=== PATIENT | female | born 1950 | race Caucasian/White ===

== ENCOUNTER → 2021-03-05 10:30 | Outpatient (BNVA) | payer OTHER, SELFPAY | PROVIDERS: PCP Family Medicine; Visit Provider Nurse Practitioner Family | DX: E03.9 Hypothyroidism, unspecified (principal); E78.2 Mixed hyperlipidemia; I10 Essential (primary) hypertension; N39.0 Urinary tract infection, site not specified; Z72.0 Tobacco use | CPT/HCPCS: 80053; 80061; 81000; 82043; 84443; 85025; 87086 ==

== ENCOUNTER → 2021-10-05 09:58 | Outpatient (BNVA) | payer OTHER, SELFPAY | PROVIDERS: PCP Family Medicine; Visit Provider Family Medicine | DX: I10 Essential (primary) hypertension (principal); E78.5 Hyperlipidemia, unspecified; M54.12 Radiculopathy, cervical region; E03.9 Hypothyroidism, unspecified; J30.2 Other seasonal allergic rhinitis | CPT/HCPCS: 80048; 84443 ==

== ENCOUNTER → 2022-08-13 09:37 | Outpatient (BNVA) | payer OTHER, SELFPAY | PROVIDERS: PCP Family Medicine; Visit Provider Family Medicine | DX: E03.9 Hypothyroidism, unspecified (principal); E78.2 Mixed hyperlipidemia; I10 Essential (primary) hypertension; J44.9 Chronic obstructive pulmonary disease, unspecified | CPT/HCPCS: 80053; 80061; 84443; 85025 ==

== ENCOUNTER → 2023-02-28 09:13 | Outpatient (BNVA) | payer OTHER, SELFPAY | PROVIDERS: PCP Family Medicine; Visit Provider Family Medicine | DX: I10 Essential (primary) hypertension (principal); E03.9 Hypothyroidism, unspecified; Z82.61 Family history of arthritis; M19.011 Primary osteoarthritis, right shoulder; M16.0 Bilateral primary osteoarthritis of hip | CPT/HCPCS: 73030; 73523; 80053; 84443; 85651; 86038; 86140 ==

== ENCOUNTER → 2023-03-06 13:29 | Outpatient (BNVA) | payer OTHER, SELFPAY | PROVIDERS: PCP Family Medicine; Visit Provider Nurse Practitioner Family | DX: R07.81 Pleurodynia (principal); W19.XXXA Unspecified fall, initial encounter; S22.42XA Multiple fractures of ribs, left side, initial encounter for closed fracture | CPT/HCPCS: 71100 ==

== ENCOUNTER → 2023-05-08 13:59 | Outpatient (BNVA) | payer OTHER, SELFPAY | PROVIDERS: PCP Family Medicine; Visit Provider Specialist | DX: M16.0 Bilateral primary osteoarthritis of hip; M70.61 Trochanteric bursitis, right hip; M70.62 Trochanteric bursitis, left hip | CPT/HCPCS: 73523 ==

== ENCOUNTER → 2023-05-23 13:23 | Outpatient (BNVA) | payer OTHER, SELFPAY | PROVIDERS: PCP Family Medicine; Visit Provider Podiatrist Foot & Ankle Surgery | DX: Q82.8 Other specified congenital malformations of skin; M20.10 Hallux valgus (acquired), unspecified foot; M20.41 Other hammer toe(s) (acquired), right foot | CPT/HCPCS: 73630 ==

== ENCOUNTER → 2023-08-29 08:45 | Outpatient (BNVA) | payer MEDICARE, SELFPAY | PROVIDERS: PCP Family Medicine; Visit Provider Family Medicine | DX: I10 Essential (primary) hypertension (principal); E03.9 Hypothyroidism, unspecified; E78.2 Mixed hyperlipidemia | CPT/HCPCS: 80053; 80061; 83735; 84439; 84443; 84481; 85025 ==

== ENCOUNTER → 2024-02-25 09:44 | Outpatient (BNVA) | payer MEDICARE, SELFPAY | PROVIDERS: PCP Family Medicine; Visit Provider Family Medicine | DX: I10 Essential (primary) hypertension (principal); E03.9 Hypothyroidism, unspecified; E78.2 Mixed hyperlipidemia | CPT/HCPCS: 80053; 80061; 84439; 84443; 84481 ==

== ENCOUNTER → 2024-03-11 09:56 | Outpatient (BNVA) | payer MEDICARE, SELFPAY | PROVIDERS: PCP Family Medicine; Visit Provider Nurse Practitioner Family | DX: R19.7 Diarrhea, unspecified (principal) | CPT/HCPCS: 87426 ==

== ENCOUNTER → 2024-08-25 09:28 | Outpatient (BNVA) | payer MEDICARE, SELFPAY | PROVIDERS: PCP Family Medicine; Visit Provider Family Medicine | DX: I10 Essential (primary) hypertension (principal); J44.9 Chronic obstructive pulmonary disease, unspecified; Z87.891 Personal history of nicotine dependence; J30.2 Other seasonal allergic rhinitis; M54.12 Radiculopathy, cervical region; E03.9 Hypothyroidism, unspecified; G47.00 Insomnia, unspecified; E78.2 Mixed hyperlipidemia; Z78.9 Other specified health status; J41.0 Simple chronic bronchitis; F51.01 Primary insomnia | CPT/HCPCS: 80053; 80061; 84443 ==

== ENCOUNTER → 2024-12-17 10:58 | Outpatient (BNVA) | payer MEDICARE, SELFPAY | PROVIDERS: PCP Family Medicine; Visit Provider Nurse Practitioner | DX: R23.3 Spontaneous ecchymoses (principal) | CPT/HCPCS: 80053; 85025 ==

== ENCOUNTER → 2024-12-31 09:50 | Outpatient (BNVA) | payer MEDICARE, SELFPAY | PROVIDERS: PCP Family Medicine; Visit Provider Family Medicine | DX: D75.839 Thrombocytosis, unspecified (principal); Z86.2 Personal history of diseases of the blood and blood-forming organs and certain disorders involving the immune mechanism | CPT/HCPCS: 80503; 85610; 85651; 86140 ==

== ENCOUNTER 2025-01-19 12:00 | Oncology outpatient (recurring) (ONCR) | payer MEDICARE, SELFPAY ==
[2025-01-19 13:35] LABS: Ferritin 12 ng/mL (15-150); Iron 21 ug/dL (37-145); Total Iron Binding Capacity 355 mcg/dl; Unsaturated Iron Binding 334 ug/dL (112-347)
[2025-01-25 15:30] LABS: CALR Exon 9 Mutation NOT DETECTED (NOT DETECTED); JAK2 Exon 12 Mutation NOT DETECTED (NOT DETECTED); JAK2 V617 Clinical Indication thrombocyosis; MPL Exon 10 Mutation NOT DETECTED (NOT DETECTED); Specimen Source blood
== END 2025-01-21 23:59 | disposition home or self-care (01) ==
PROVIDERS: PCP Family Medicine; Visit Provider Internal Medicine Medical Oncology
DX: Z53.9 Procedure and treatment not carried out, unspecified reason; D75.839 Thrombocytosis, unspecified; R22.1 Localized swelling, mass and lump, neck; D47.3 Essential (hemorrhagic) thrombocythemia; R23.3 Spontaneous ecchymoses
CPT/HCPCS: 36415; 81219; 81270; 81279; 81339; 82728; 83540; 83550; 88374; 99204; 99205

== ENCOUNTER 2025-02-03 09:43 | Outpatient (CLI) | payer MEDICARE, SELFPAY ==
--- NOTE | 2025-02-03 09:40 | MM_ITS ---
WS: [id number] BILATERAL 3D TOMOSYNTHESIS DIGITAL SCREENING MAMMOGRAPHY WITH CAD CLINICAL INFORMATION: SCREENING HISTORY: Screening mammogram. No current complaints. COMPARISON: 2020 TECHNIQUE: Bilateral CC and MLO views. FINDINGS: Scattered fibroglandular densities bilaterally. Stable ovoid nodule inferior LEFT breast. New spiculated focal asymmetric density anterior LEFT breast this measures approximately 7 mm. Recommend further evaluation with LEFT breast diagnostic mammography and ultrasound. Unremarkable RIGHT breast. MM/MM scr tomosynthesis [id number] IMPRESSION: DENSITY: There are scattered areas of fibroglandular density. BI-RADS: 0 - Incomplete: Need additional imaging evaluation. FOLLOW UP: Need Additional Imaging Recommend further evaluation with LEFT breast diagnostic mammography and ultras ound.
== END 2025-02-03 09:44 | disposition home or self-care (01) ==
PROVIDERS: PCP Family Medicine; Visit Provider Family Medicine
DX: Z12.31 Encounter for screening mammogram for malignant neoplasm of breast (principal); R92.323 Mammographic fibroglandular density, bilateral breasts; N63.24 Unspecified lump in the left breast, lower inner quadrant; N64.89 Other specified disorders of breast
CPT/HCPCS: 77063; 77067

== ENCOUNTER 2025-02-16 08:27 | Day surgery (SDC) | payer MEDICARE, SELFPAY ==
[2025-02-16 08:47] VITALS: BP 132/84; PULSE 84; RESP 18; TEMP 36.5; O2SAT 97; BMI 23.1
--- NOTE | 2025-02-16 09:10 | ANES.PREANE2 ---
Pre-Anesthetic Assessment Height/Weight: Height 1.63 m Weight 61.235 kg Temp Pulse Resp BP Pulse Ox O2 Del Method 97.7 F 84 18 132/84 97 Room Air 02/16/25 08:47 02/16/25 08:47 02/16/25 08:47 02/16/25 08:47 02/16/25 08:47 02/16/25 08:47 Preop Diagnosis: screening Operation Date: 02/16/25 09:45 Proposed Procedures p Colonoscopy 27869 G0121, Z12.11(Not Applicable) - Yasmany Kern MD Was Beta Jose taken within 24 hours: Yes Was Clonidine taken within 24 hours: N/A Last intake: Intake Last Liquid Date 02/15/25 Last Liquid Time 20:00 Last Solid Date 02/14/25 Last Solid Time 18:00 Social Tobacco 1/2 ppd pack(s) per day 20 plus pack years Exam alert and oriented x 3 Airway Submandibular: within normal limits Cervical ROM: within normal limits Mallampati: Class I Dentition: false (uppers left in) History/ROS No significant history except as noted Pulmonary None reported CV/HEM Hypertension and Murmur None reported Hepatic None reported GI None reported Metabolic Hyperlipidemia and Thyroid [place] [facility] [place] Fibromyalgia lupus Neuropsych None reported Anesthetic Plan ASA status: 3 Anesthesia: MAC Risk of > 500 ml blood loss (7ml/kg in children): No Medications/Allergies Home Medications ?Medication ?Instructions ?Recorded ?Confirmed ?Last Taken ?Type ascorbic acid (vitamin C) 1,000 mg 1 g PO DAILY 03/05/21 02/10/25 02/10/25 History tablet cholecalciferol (vitamin D3) 125 125 mcg PO DAILY 03/05/21 02/10/25 02/10/25 History mcg (5,000 unit) disintegrating tablet multivitamin 1 tab PO DAILY 03/05/21 02/10/25 02/10/25 History zinc acetate 50 mg (zinc) capsule 50 mg PO DAILY 03/05/21 02/10/25 02/10/25 History (Galzin) albuterol sulfate 90 mcg/actuation 2 inh inhalation Q4H PRN shortness 08/25/24 02/10/25 Unknown Rx aerosol inhaler of breath or wheezing #6.7 grams amlodipine 10 mg tablet 10 mg PO DAILY 90 days #90 tabs 08/25/24 02/16/25 02/16/25 Rx 10 gabapentin 400 mg capsule 400 mg PO TID 90 days #270 caps 08/25/24 02/10/25 02/10/25 Rx hydrochlorothiazide 25 mg tablet 25 mg PO DAILY 90 days #90 tabs 08/25/24 02/16/25 02/16/25 Rx 25 levothyroxine 137 mcg tablet 137 mcg PO DAILY 90 days #90 tabs 08/25/24 02/16/25 02/16/25 Rx 137 lisinopril 40 mg tablet 40 mg PO DAILY 90 days #90 tabs 08/25/24 02/16/25 02/16/25 Rx 40 MG zolpidem 5 mg tablet 5 mg PO .at bedtime #30 tabs 08/25/24 02/10/25 02/09/25 Rx tramadol 50 mg tablet 50 mg PO BID PRN pain 7 days #14 11/25/24 02/10/25 Unknown Rx tabs fluticasone propionate 50 1 spray intranasal Q12H 02/10/25 02/10/25 02/10/25 History mcg/actuation nasal spray,suspension loratadine 10 mg tablet 10 mg PO DAILY PRN Allergic 02/10/25 02/10/25 Unknown History Symptoms Allergies Allergy/AdvReac Type Severity Reaction Status Date / Time NSAIDS (Non-Steroidal Allergy Intermediate ALGY-Rash Verified 02/10/25 09:08 Anti-Inflamma ciprofloxacin (From Cipro) Allergy Mild ALGY-RASH Verified 02/10/25 09:08 sulfamethoxazole (From Allergy blisters Verified 02/10/25 09:08 Bactrim) trimethoprim (From Bactrim) Allergy blisters Verified 02/10/25 09:08 atorvastatin AdvReac Intermediate muscle Verified 02/10/25 09:08 cramps aspirin AdvReac Mild ADR-Abdominal Verified 02/10/25 09:08 Pain Current Medications Generic Name Dose Route Start Last Admin Trade Name Freq PRN Reason Stop Dose Admin Sodium Chloride 1,000 mls @ 15 mls/hr 02/16/25 08:35 02/16/25 08:55 Sodium Chloride 0.9% IV 02/17/25 08:34 15 mls/hr .Q24H PRN Administration COLONOSCOPY FLUIDS PFSH Anesthesia Medical History Hyperlipidemia Cervical radiculopathy Hypothyroidism Hypertension Surgical History H/O shoulder surgery H/O neck surgery S/P cholecystectomy H/O: hysterectomy Social History Smoking and tobacco/nicotine status: never used tobacco/nicotine Quit status (tobacco/nicotine): has quit using Year quit tobacco: 2017 Alcohol intake: never Substance/Drug Use: never Female Reproductive History Spontaneous abortions: No
--- NOTE | 2025-02-16 09:26 | W.PM.OPSFHP ---
Same Day Surgery H&P Indication for Procedure/HPI DATE OF PROCEDURE: February 16, 2025 CHIEF COMPLAINT/INDICATIONFOR SURGICAL PROCEDURE: screening colonoscopy PREOP DIAGNOSIS: screening colonoscopy PLANNED PROCEDURE: Operation Date: 02/16/25 09:45 Proposed Procedures p Colonoscopy 89182 G0121, Z12.11(Not Applicable) - Yasmnay Kern MD Medications/Allergies* Home Medications ?Medication ?Instructions ?Recorded ?Confirmed ?Type ascorbic acid (vitamin C) 1,000 mg 1 g PO DAILY 03/05/21 02/10/25 History tablet cholecalciferol (vitamin D3) 125 125 mcg PO DAILY 03/05/21 02/10/25 History mcg (5,000 unit) disintegrating tablet multivitamin 1 tab PO DAILY 03/05/21 02/10/25 History zinc acetate 50 mg (zinc) capsule 50 mg PO DAILY 03/05/21 02/10/25 History (Galzin) fluticasone propionate 50 1 spray intranasal Q12H 02/10/25 02/10/25 History mcg/actuation nasal spray,suspension loratadine 10 mg tablet 10 mg PO DAILY PRN Allergic 02/10/25 02/10/25 History Symptoms Allergies/Adverse Reactions Allergy/AdvReac Type Severity Reaction Status Date / Time NSAIDS (Non-Steroidal Allergy Intermediate ALGY-Rash Verified 02/10/25 09:08 Anti-Inflamma ciprofloxacin (From Cipro) Allergy Mild ALGY-RASH Verified 02/10/25 09:08 sulfamethoxazole (From Allergy blisters Verified 02/10/25 09:08 Bactrim) trimethoprim (From Bactrim) Allergy blisters Verified 02/10/25 09:08 atorvastatin AdvReac Intermediate muscle Verified 02/10/25 09:08 cramps aspirin AdvReac Mild ADR-Abdominal Verified 02/10/25 09:08 Pain Current Medications: Generic Name Dose Route Start Last Admin Trade Name Freq PRN Reason Stop Dose Admin Sodium Chloride 1,000 mls @ 15 mls/hr 02/16/25 08:35 02/16/25 08:55 Sodium Chloride 0.9% IV 02/17/25 08:34 15 mls/hr .Q24H PRN Administration COLONOSCOPY FLUIDS Pertinent History/Comorbid Conditions* Medical History (Updated 01/04/25 @ 09:18 by Nicolle España MD) Hyperlipidemia Cervical radiculopathy Hypothyroidism Hypertension Surgical History (Updated 10/10/20 @ 16:12 by Darya Mcmullen MD) H/O shoulder surgery H/O neck surgery S/P cholecystectomy H/O: hysterectomy Social History Smoking and tobacco/nicotine status: never used tobacco/nicotine Quit status (tobacco/nicotine): has quit using Year quit tobacco: 2017 Alcohol intake: never Substance/Drug Use: never Pertinent Exam Findings alert, oriented x 3, clear to auscultation bilaterally, regular rate & rhythm and procedure specific exam findings abdomen soft, nt, nd Recommendations Risks and benefits of procedure reviewed and Patient/family agree to proceed Surgery/Procedure today Coding Level of Care Code Acute Code for Chg Fwd
--- NOTE | 2025-02-16 09:37 | PC.NURSE ---
Cecum time 9640
[2025-02-16 09:47] VITALS: BP 147/81; PULSE 81; RESP 16; TEMP 36.2; O2SAT 100
--- NOTE | 2025-02-16 10:09 | ANE.PACU2 ---
Inpatient post-anesthesia follow up: Airway intact: Yes Vital signs: Temperature 97.1 F Pulse Rate 81 Respiratory Rate 16 Blood Pressure 147/81 Pulse Oximetry 100 Oxygen Delivery Me thod Room Air Oxygen Flow Rate Fraction of Inspir ed Oxygen Hydration adequate: Yes Nausea and vomiting: No Pain level: 1 Mental status: Baseline
== END 2025-02-16 10:09 | disposition home or self-care (01) ==
PROVIDERS: PCP Family Medicine; Visit Provider Student in an Organized Health Care Education/Training Program
PROC: 0DJD8ZZ Inspection of Lower Intestinal Tract, Via Natural or Artificial Opening Endoscopic (ICD-10-PCS; CPT 45378; principal; 2025-02-16 09:45)
DX: Z12.11 Encounter for screening for malignant neoplasm of colon (principal); K57.30 Diverticulosis of large intestine without perforation or abscess without bleeding; E78.5 Hyperlipidemia, unspecified; E03.9 Hypothyroidism, unspecified; I10 Essential (primary) hypertension; R01.1 Cardiac murmur, unspecified; M79.7 Fibromyalgia; Z87.891 Personal history of nicotine dependence
CPT/HCPCS: G0121; J2704; J7030

== ENCOUNTER 2025-02-25 13:21 | Outpatient (CLI) | payer MEDICARE, SELFPAY ==
--- NOTE | 2025-02-25 13:26 | MM_ITS ---
WS: [id number] LEFT 3D TOMOSYNTHESIS DIGITAL MAMMOGRAPHY WITH CAD CLINICAL INFORMATION: ABNORMAL MAMMO HISTORY: Additional views COMPARISON: 02/03/2025 TECHNIQUE: 3 views of the left breast were obtained. FINDINGS: Scattered fibroglandular densities of the left breast. Again seen is the spiculated focal asymmetric density anterior LEFT breast measuring 8 mm. This persists on the spot compression views. Ultrasound described below. ULTRASOUND BREAST LEFT TECHNIQUE: Ultrasound left breast focused area of concern. CLINICAL INFORMATION: ABNORMAL MAMMO FINDINGS: Ultrasound LEFT breast at the 1 o'clock position 1 cm from the nipple. There is a solid irregular hypoechoic nodule measuring 9 x 8 x 8 mm with a suspicious appearance. This is taller than wide and demonstrates posterior shadowing with spiculated irregular margins. This corresponds to the mammographic findings. Recommend further evaluation with ultrasound-guided biopsy. MM/MM diag LT tomosynthesis [id number] IMPRESSION: DENSITY: There are scattered areas of fibroglandular density. BI-RADS: 4 - Suspicious Finding - Biopsy Should Be Considered. FOLLOW UP: US Guided Biopsy Recommended Recommend ultrasound-guided biopsy of the LEFT breast lesion
== END 2025-02-25 13:22 | disposition home or self-care (01) ==
LOC: RAD 13:22
PROVIDERS: PCP Family Medicine; Visit Provider Family Medicine
DX: R92.8 Other abnormal and inconclusive findings on diagnostic imaging of breast (principal); R92.322 Mammographic fibroglandular density, left breast; N63.21 Unspecified lump in the left breast, upper outer quadrant
CPT/HCPCS: 76642; 77061; G0279

== ENCOUNTER 2025-03-03 10:37 | Outpatient (CLI) | payer MEDICARE, SELFPAY ==
--- NOTE | 2025-03-03 10:41 | US_ITS ---
WS: [id number] ULTRASOUND-GUIDED LEFT BREAST BIOPSY HISTORY: ABNORMAL MAMMO COMPARISON: 02/25/2025, 02/03/2025 Procedure, risks and complications are explained to the patient. Medications are reviewed. Consent is obtained. The mass in the LEFT breast is localized with ultrasound. Mass localizes to 1:00, 1 cm from the nipple. Skin is cleansed with ChloraPrep and anesthetized with 1% buffered lidocaine. Small dermatome is made. Under sterile conditions mass is biopsied with a 14-gauge Achieve needle. Multiple core biopsies are performed. Material placed in formalin and sent to pathology for review. No complications encountered. Breast tissue marker (Geswind ultrasound enhanced ribbon): Single. Patient left the radiology suite with no complications. Patient is instructed to return to [facility] [place] or call with any concerns. US/[place] [id number] IMPRESSION: 1. Uncomplicated core needle biopsy LEFT breast mass at 1:00, 1 cm from the ni pple. PATHOLOGY: Invasive mammary carcinoma, nuclear grade 2. Focal background ductal carcinoma in situ. Please refer to the pathology report for additional details . RECOMMENDATION: Follow-up with oncology and breast surgery.
[2025-03-08 13:54] LABS: Breast Profile ER,PR,HER2,Ki-6 See Report
== END 2025-03-03 10:38 | disposition home or self-care (01) ==
LOC: RAD 10:37
PROVIDERS: PCP Family Medicine; Visit Provider Family Medicine
DX: R92.8 Other abnormal and inconclusive findings on diagnostic imaging of breast (principal)
CPT/HCPCS: 19083; 88305; 88361; 88374

== ENCOUNTER 2025-03-10 11:22 | Oncology outpatient (recurring) (ONCR) | payer MEDICARE, SELFPAY | END 2025-03-23 23:59 | disposition home or self-care (01) | PROVIDERS: PCP Family Medicine; Visit Provider Internal Medicine Medical Oncology | DX: C50.912 Malignant neoplasm of unspecified site of left female breast (principal); Z17.0 Estrogen receptor positive status [ER+]; R01.1 Cardiac murmur, unspecified; I10 Essential (primary) hypertension; V89.2XXA Person injured in unspecified motor-vehicle accident, traffic, initial encounter; X58.XXXA Exposure to other specified factors, initial encounter | CPT/HCPCS: 99214 ==

== ENCOUNTER → 2025-03-18 13:37 | Outpatient (BNVA) | payer MEDICARE, SELFPAY | PROVIDERS: PCP Family Medicine; Visit Provider Student in an Organized Health Care Education/Training Program | DX: Z12.39 Encounter for other screening for malignant neoplasm of breast (principal) | CPT/HCPCS: 99204 ==

== ENCOUNTER 2025-03-24 07:34 | Day surgery (SDC) | payer MEDICARE, SELFPAY ==
[2025-03-24] VITALS (11 sets, daily range): BP systolic 91–144; BP diastolic 62–78; PULSE 73–89; RESP 12–18; TEMP 36.1–36.2; O2SAT 94–99; BMI 22.1
[2025-03-24 08:29] LABS: Hematocrit 37.6 % (36-47); Hemoglobin 12.80 g/dL (11.27-16.99); Mean Corpuscular HGB Conc 34.0 g/dL (30-55); Mean Corpuscular Hemoglobin 28.8 pg (27-33); Mean Corpuscular Volume 84.5 fl (85-98); Nucleated Red Blood Cells % 0 %; Platelet Count 435 10^3/cmm (157-399); Red Blood Count 4.45 10^6/uL (3.85-5.65); White Blood Count 9.31 10^3/uL (3.29-11.43)
--- NOTE | 2025-03-24 08:48 | W.PM.OPSUD ---
Surgery/Procedure H&P Update DATE OF PROCEDURE: March 24, 2025 DATE H&P PERFORMED: 03/18/25 H&P UPDATE INFORMATION: I have reviewed H&P completed within last 30 days, I have examined patient prior to procedure and No changes to prior documentation CHANGES TO PREVIOUS DOCUMENTATION: Marked left breast in preop area with patient's input and nurse present PLANNED PROCEDURE: Operation Date: 03/24/25 09:05 Proposed Procedures p LEFT Mastectomy Simple 95691 C50.919(Left) - Yasmany Kern MD
[2025-03-24 08:49] LABS: Anion Gap 14.0 (5-19); Blood Urea Nitrogen 12 mg/dL (8-23); Calcium 9.0 mg/dL (8.5-10.5); Carbon Dioxide 25 mmol/L (22-29); Chloride 99 mmol/L (98-107); Creatinine Clr Calc Pharmacy 56.4204; Glucose 121 mg/dL (65-115); Osmolality Calculated 279 mOsm/kg (285-295); Potassium 4.0 mmol/L (3.5-5.1); Sodium 134 mmol/L (136-145)
[2025-03-24] MEDS: ceFAZolin 2,000 mg SDV 2000 MG IVP (09:12)
[2025-03-24] MEDS: lidocaine-epi 1% 20 mL INJ INJECTION (09:30)
[2025-03-24] MEDS: BUPivacaine 0.5% INJ 30 mL INJECTION (09:30)
--- NOTE | 2025-03-24 09:54 | PM.OP ---
Operative Report Date of procedure: March 24, 2025 Pre-op diagnosis: Left breast cancer Post-op diagnosis: same Post-op findings: Left simple mastectomy performed. Specimen marked, long lateral, short superior. Procedure done: Left simple mastectomy Implants: N/A Specimens removed/disposition: Left mastectomy specimen sent to pathology Pathology: Left mastectomy specimen sent to pathology Surgeon: Yasmany Kern MD Plant Anatomy Teacher: N/A Anesthesia: General Estimated blood loss (mL): 30 Complications: N/A Findings: Left simple mastectomy performed. Specimen marked, long lateral, short superior. Condition: stable Disposition: same day Brief History: 74-year-old female who presented with left breast cancer. Discussed risk and benefits and patient agreed to proceed with left mastectomy. I had discussed all surgical options with the patient including breast conservation surgery, mastectomy with sentinel lymph node biopsy, reconstructive options, and patient decided to proceed with a simple left mastectomy. Procedure: The patient was wheeled into the operative room and placed on the OR table in the supine position. The left breast. A timeout was performed. All present were in agreement. An elliptical incision was made from medial to the latissimus dorsi to lateral to the sternum, encompassing the nipple. Dissection was carried out using electrocautery down to the clavipectoral fascia and down to the pectoralis major. The entirety of the breast tissue was excised. The breast was removed and a the lateral margin was marked with a 2-0 nylon stitch cut long, and the superior margin was marked with a 2-0 nylon stitch cut short. The specimen was passed off. The surgical field was irrigated with sterile water and adequate hemostasis was achieved using electrocautery. Stick ties using 3-0 silk were also used for hemostasis. A 10 Divehi Matt drain was then placed in the resection bed. Dermis was then approximated with interrupted 2-0 Vicryl. Skin was then closed with 4-0 monocryl in a subcuticular running fashion. Surgical glue was applied. The chest was dressed using fluffs and a sports bra. Patient tolerated the procedure well and was wheeled in the postoperative anesthesia care unit in good condition.
[2025-03-24] MEDS: oxyCODONE 5 mg IR Tab/Cap PO (11:00)
--- NOTE | 2025-03-24 11:58 | ANE.PACU2 ---
Inpatient post-anesthesia follow up: Airway intact: Yes Vital signs: Temperature 97 F Pulse Rate 79 Respiratory Rate 17 Blood Pressure 107/75 Pulse Oximetry 98 Oxygen Delivery Me thod Room Air Oxygen Flow Rate Fraction of Inspir ed Oxygen Hydration adequate: Yes Nausea and vomiting: No Pain level: 1 Mental status: Baseline
== END 2025-03-24 11:58 | disposition home or self-care (01) ==
PROVIDERS: Student in an Organized Health Care Education/Training Program; PCP Family Medicine; Visit Provider Student in an Organized Health Care Education/Training Program
PROC: (CPT 19303; principal; 2025-03-24 09:05)
DX: C50.912 Malignant neoplasm of unspecified site of left female breast (principal); E78.5 Hyperlipidemia, unspecified; I10 Essential (primary) hypertension; E03.9 Hypothyroidism, unspecified
CPT/HCPCS: 19303; 36415; 80048; 85025; 88309; J0131; J0690; J1100; J2405; J2704; J3010; J3490; J7030; J9999

== ENCOUNTER → 2025-04-02 09:46 | Outpatient (BNVA) | payer MEDICARE, SELFPAY | PROVIDERS: PCP Family Medicine; Visit Provider Student in an Organized Health Care Education/Training Program | DX: Z98.890 Other specified postprocedural states (principal) | CPT/HCPCS: 99024 ==

== ENCOUNTER 2025-04-28 08:26 | Oncology outpatient (recurring) (ONCR) | payer MEDICARE, SELFPAY ==
[2025-04-28 08:49] LABS: Hematocrit 40.6 % (36-47); Hemoglobin 13.90 g/dL (11.27-16.99); Mean Corpuscular HGB Conc 34.2 g/dL (30-55); Mean Corpuscular Hemoglobin 29.4 pg (27-33); Mean Corpuscular Volume 86.0 fl (85-98); Nucleated Red Blood Cells % 0 %; Platelet Count 498 10^3/cmm (157-399); Red Blood Count 4.72 10^6/uL (3.85-5.65); White Blood Count 10.67 10^3/uL (3.29-11.43)
[2025-04-28 09:16] LABS: Alanine Aminotransferase 11 U/L (0-33); Albumin Level 4.5 g/dL (3.5-5.2); Alkaline Phosphatase 107 U/L (35-105); Anion Gap 17.8 (5-19); Aspartate Amino Transferase 13 U/L (0-32); Blood Urea Nitrogen 9 mg/dL (8-23); Calcium 9.6 mg/dL (8.5-10.5); Carbon Dioxide 25 mmol/L (22-29); Chloride 91 mmol/L (98-107); Ferritin 34 ng/mL (15-150); Globulin 3.3 g/dL (1.3-4.6); Glucose 116 mg/dL (65-115); Iron 168 ug/dL (37-145); Osmolality Calculated 270 mOsm/kg (285-295); Potassium 3.8 mmol/L (3.5-5.1); Sodium 130 mmol/L (136-145); Total Iron Binding Capacity 397 mcg/dl; Total Protein 7.8 g/dL (6.6-8.7); Unsaturated Iron Binding 229 ug/dL (112-347)
== END 2025-05-23 23:59 | disposition home or self-care (01) ==
PROVIDERS: Internal Medicine; PCP Family Medicine; Visit Provider Internal Medicine Medical Oncology
DX: C50.912 Malignant neoplasm of unspecified site of left female breast (principal); D75.839 Thrombocytosis, unspecified; R01.1 Cardiac murmur, unspecified; I10 Essential (primary) hypertension; D50.9 Iron deficiency anemia, unspecified; Z90.12 Acquired absence of left breast and nipple; Z87.891 Personal history of nicotine dependence; Z79.899 Other long term (current) drug therapy
CPT/HCPCS: 36415; 80053; 82728; 83540; 83550; 85025; 99214

== ENCOUNTER → 2025-05-25 09:21 | Outpatient (BNVA) | payer MEDICARE, SELFPAY | PROVIDERS: Family Provider Family Medicine; PCP Family Medicine; Visit Provider Family Medicine | DX: E87.1 Hypo-osmolality and hyponatremia (principal); C50.919 Malignant neoplasm of unspecified site of unspecified female breast | CPT/HCPCS: 80048; 80053; 83615; 85025; 86300 ==

== ENCOUNTER 2025-06-08 06:49 | Oncology outpatient (recurring) (ONCR) | payer MEDICARE, SELFPAY ==
--- NOTE | 2025-06-08 07:00 | USCV_ITS ---
Ernestina Palacio Age: 74 Gender: F : 1950 Exam Date: 06/08/2025 07:05 Ordering Phys: Darya Mcmullen MD Technologist: [place] [facility] [place]: as BP: 130 / 80 HR: 76 Rhythm: Sinus Technical Quality: Adequate MEASUREMENTS (Male / Female) Normal Values 2D ECHO LV Diastolic Diameter PLAX 3.4 cm 4.2 - 5.9 / 3.9 - 5.3 cm IVS Diastolic Thickness 1.5 cm 0.6 - 1.0 / 0.6 - 0.9 cm IVS Systolic Thickness 1.8 cm LVPW Diastolic Thickness 1.3 cm 0.6 - 1.0 / 0.6 - 0.9 cm LVPW Systolic Thickness 1.2 cm LVOT Diameter 2.0 cm LV Ejection Fraction 2D Teich 78.7 % LV Ejection Fraction MOD 4C 51.7 % LV Ejection Fraction MOD 2C 64.1 % LV Ejection Fraction 2C AL 64.5 % LA Diameter 3.2 cm RA Systolic Volume 4C AL 28.4 ml RA Systolic Volume 4C MOD 27.6 ml LA Sys Volume AL 39.3 cm cubed LA Sys Volume Index AL 24.4 cm cubed/m squared Aorta at Sinotubular Diameter 2.8 cm IVC Diameter 1.6 cm M-MODE LA Ao Ratio MM 1.0 AV Cusp Separation MM 1.0 cm DOPPLER AV Peak Velocity 329.5 cm/s LVOT Peak Velocity 103.0 cm/s AV Area Cont Eq vti 1.2 cm squared AV Area Cont Eq pk 1.0 cm squared MV Area PHT 4.3 cm squared TV Peak Velocity 232.5 cm/s TR Peak Velocity 250.0 cm/s TR Peak Gradient 25.0 mmHg TV Peak E Velocity 84.0 cm/s PV Peak Velocity 141.0 cm/s FINDINGS Left Ventricle Mild to moderate concentric left ventricular hypertrophy. Normal LV ejection fraction of 65%.no regional wall motion abnormalities. Grade I/IV diastolic dysfunction (abnormal relaxation filling pattern), normal to mildly elevated filling pressures. Right Ventricle Normal right ventricular size and systolic function. Right Atrium Normal right atrial size. Left Atrium Mildly increased left atrial size. IA Septum Normal appearance of the interatrial septum. Mitral Valve Mild mitral annular calcification. Aortic Valve Moderate aortic valve stenosis, SAAD 1.2 cm squared. Peak velocity of 3.44 m/s with a peak gradient of 47 and a mean gradient of 24 mmHg Tricuspid Valve Trace to mild tricuspid valve regurgitation. Estimated pulmonary artery peak systolic pressure 28 mmHg Pulmonic Valve No gross abnormalities noted Pericardium No pericardial effusion. Aorta Normal aortic annulus size. IVC Normal inferior vena cava. CONCLUSIONS Mild to moderate concentric left ventricular hypertrophy. Normal LV ejection fraction of 65%. No regional wall motion abnormalities. Grade I/IV diastolic dysfunction (abnormal relaxation filling pattern), normal to mildly elevated filling pressures. Mildly increased left atrial size. Mild mitral annular calcification. Moderate aortic valve stenosis, SAAD 1.2 cm squared. Peak velocity of 3.44 m/s with a peak gradient of 47 and a mean gradient of 24 mmHg Trace to mild tricuspid valve regurgitation. Estimated pulmonary artery peak systolic pressure 28 mmHg There is no pericardial effusion. There are no intracardiac masses. No similar previous studies are available for comparison Dr Valerie Guerrero MD [facility] (Electronically Signed) Final Date: 10 June 2025 08:57 S
== END 2025-06-23 23:59 | disposition home or self-care (01) ==
LOC: RAD 09:12 → ONCMED 09:15
PROVIDERS: Family Provider Family Medicine; PCP Family Medicine; Visit Provider Internal Medicine Medical Oncology
DX: R01.1 Cardiac murmur, unspecified (principal); I51.7 Cardiomegaly; R93.1 Abnormal findings on diagnostic imaging of heart and coronary circulation; I34.81 Nonrheumatic mitral (valve) annulus calcification; I35.0 Nonrheumatic aortic (valve) stenosis; I07.1 Rheumatic tricuspid insufficiency
CPT/HCPCS: 93306